=== PATIENT | male | born 1970 | race Caucasian/White ===

== ENCOUNTER 2017-04-07 09:39 | Emergency (ER) | payer BC ==
[~2017-04-07 09:39] MED LIST: Iopamidol 370 76% 100 ML VIAL ONE
[2017-04-07 10:23] LABS: #Basophils 0.2 thou/uL (0.0-0.2); #Lymphocytes 1.2 thou/uL (1.20-3.40); #Monocytes 1.9 thou/uL (0.11-0.59); #Neutrophils 10.7 thou/uL (1.40-6.50); %Basophils 1.3 % (0.0-1.0); %Eosinophils 0.2 % (0.0-10.0); %Lymphocytes 8.9 % (21.0-51.0); %Monocytes 13.2 % (0.0-10.0); Hematocrit 40.2 % (42.0-52.0); Mean Platelet Volume 6.5 fL (7.4-10.4); Red Blood Cell (RBC) Count 4.71 mill/uL (4.70-6.10)
[2017-04-07] MEDS ORDERED: Ibuprofen 600 MG TAB ONE (10:26)
[2017-04-07] MEDS ORDERED: Sodium Chloride 0.9% 100 ML ONE (10:26)
[2017-04-07] MEDS ORDERED: cefTRIAXone\\ROCEPHIN 1 GM VIAL ONE (10:26)
[2017-04-07] MEDS ORDERED: Acetaminophen 500 MG TAB ONE (10:29)
[2017-04-07 10:31] LABS: Lactic Acid - Sepsis 1.7 mmol/L (0.5-2.2)
[2017-04-07 10:36] LABS: ALT (SGPT) 16 U/L (8-55); AST (SGOT) 13 U/L (5-34); Alkaline Phosphatase 65 U/L (40-150); Anion Gap 13 mmol/L (10-20); BUN (Urea Nitrogen) 9 mg/dL (8.9-20.6); Bilirubin, Total 0.6 mg/dL (0.2-1.2); CK (CPK) 84 U/L (30-200); Calc. Creatinine Clearance 0 mL/min (70-130); Calcium 8.8 mg/dL (7.8-10.44); Carbon Dioxide 23 mmol/L (22-29); Chloride 101 mmol/L (98-107); Estimated GFR-MDRD Greater than 90; Globulin 3.6 g/dL (2.4-3.5); Lipase 16 U/L (8-78); Protein, Total 7.1 g/dL (6.0-8.3)
[2017-04-07 10:37] LABS: Troponin I Less than 0.010 ng/mL (< 0.028)
--- NOTE | 2017-04-07 11:26 | RAD ---
SEMIUPR[facility] FRONTAL CHEST RADIOGRAPH: Date: 04/07/17 COMPARISON: None. HISTORY: Chest pain with cough. FINDINGS: There is focal opacity in the left base with blunting of the left costophrenic angle and partial obs curation of left hemidiaphragm and left heart border. Right lung appears clear. No pneumothorax. IMPRESSION: Focal opacity in the left lung base suggests left lower lobe consolidation, likely on the basis of i nfectious pneumonitis or aspiration. Probable associated small pleural effusion. Follow-up imaging f ollowing treatment to document resolution advised. POS: [facility]
--- NOTE | 2017-04-07 12:28 | CT ---
CTA OF CHEST WITH CONTRAST: Date: 04/07/17 COMPARISON: None. HISTORY: Chest pain. TECHNIQUE: Multiple contiguous axial images were obtained in a CTA of the chest with contrast per pulmonary emb olism protocol. 3D oblique MIP reformats and direct coronal reformats were performed. FINDINGS: The pulmonary arteries are well opacified without filling defects to suggest pulmonary emboli. The h eart is normal in size without focal cardiac abnormality. There is an infiltrate in the left lower lobe. This is consistent with the findings seen on chest x- ray. No pneumothorax or pleural effusion seen. No suspicious pulmonary mass is seen. The visualized subdiaphragmatic structures are unremarkable. The chest wall soft tissues and osseous structures are unremarkable. IMPRESSION: 1. No evidence of pulmonary thromboembolism. 2. Left lower lobe pneumonia. This is consistent with the findings on chest x-ray. POS: [facility]
== END 2017-04-07 12:18 | disposition home or self-care (01) ==
LOC: SCSER 09:39
DX: J18.9 Pneumonia, unspecified organism (principal); F17.210 Nicotine dependence, cigarettes, uncomplicated
CPT/HCPCS: 36415; 71010; 71275; 80053; 82550; 82553; 83605; 83690; 84484; 85025; 85379; 93005; 96365; J0696; J7050